=== PATIENT | female | born 1970 | race American Indian/Alaskan Native ===

== ENCOUNTER 2022-02-18 01:55 | Emergency (ER) | payer MEDICAID ==
--- NOTE | 2022-02-18 08:11 | Emergency Department Report ---
ED Female HPI - General Chief complaint: Urogenital-Female Stated complaint: CONDOM STUCK Time Seen by Provider: 02/18/22 07:09 Source: patient Mode of arrival: Ambulatory Limitations: No Limitations - History of Present Illness Initial comments: 51-year-old black female presents to the emergency department for evaluation of possible condom in vagina. She states that she had sex a few days ago and has been unable to get condom out of her vagina despite several attempts. She states that she is now starting to have some intermittent abdominal pain but denies fever. MD Complaint: pelvic pain, other (Foreign body in vagina) -: Sudden, days(s) (2) Severity scale (0 -10): 3 Quality: aching Consistency: intermittent Are you Now?: No Associated Symptoms: abdominal pain. denies: vaginal discharge, vaginal bleeding, nausea/vomiting, fever/chills, headaches, loss of appetite, dysuria, hematuria, rash, seizure, shortness of breath, syncope, weakness - Related Data Sexually active: Yes Previous Rx's Medication Instructions Recorded Last Taken Type Acetaminophen/Codeine [Tylenol #3] 1 tab PO Q6H PRN #20 tablet 12/20/15 Unknown Rx Clindamycin [Clindamycin CAP] 300 mg PO Q8H #21 cap 02/18/22 Unknown Rx Allergies Allergy/AdvReac Type Severity Reaction Status Date / Time Penicillins Allergy Itching Verified 12/20/15 02:20 ED Review of Systems ROS: Stated complaint: CONDOM STUCK Other details as noted in HPI Comment: All other systems reviewed and negative Constitutional: denies: chills, fever Respiratory: denies: shortness of breath Cardiovascular: denies: chest pain, palpitations Gastrointestinal: abdominal pain. denies: nausea, vomiting, diarrhea, hematemesis, melena, hematochezia Genitourinary: denies: urgency, dysuria Musculoskeletal: denies: back pain Skin: denies: rash, lesions Neurological: denies: headache, weakness ED Past Medical Hx - Past Medical History Additional medical history: anemic - Surgical History Hx Cholecystectomy: Yes Hx Appendectomy: Yes - Social History Smoking Status: Never Smoker Substance Use Type: None - Medications Home Medications: Home Medications Medication Instructions Recorded Confirmed Last Taken Type Acetaminophen/Codeine [Tylenol #3] 1 tab PO Q6H PRN #20 tablet 12/20/15 Unknown Rx Clindamycin [Clindamycin CAP] 300 mg PO Q8H #21 cap 02/18/22 Unknown Rx ED Physical Exam - General Limitations: No Limitations General appearance: alert, in no apparent distress - Head Head exam: Present: atraumatic, normocephalic - Eye Eye exam: Present: normal appearance. Absent: conjunctival injection - Neck Neck exam: Present: normal inspection - Respiratory Respiratory exam: Absent: respiratory distress - Cardiovascular Cardiovascular Exam: Present: regular rate - GI/Abdominal GI/Abdominal exam: Present: soft, normal bowel sounds. Absent: distended, te nderness, guarding, rebound - External exam: Present: normal external exam Speculum exam: Present: foreign body. Absent: vaginal discharge - Extremities Exam Extremities exam: Present: normal inspection - Back Exam Back exam: Present: normal inspection. Absent: CVA tenderness (R), CVA tenderness (L) - Neurological Exam Neurological exam: Present: alert, oriented X3, normal gait - Psychiatric Psychiatric exam: Present: normal affect, normal mood - Skin Skin exam: Present: warm, dry, intact, normal color ED Course Vital Signs 02/18/22 02/18/22 02:51 08:21 Temperature 98.4 F 98.7 F Pulse Rate 77 74 Respiratory 18 14 Rate Blood Pressure 135/82 112/80 [Right] O2 Sat by Pulse 100 100 Oximetry - Procedure Description Procedures done: Foreign body removal removal from vagina: Patient with placed in supine position and vaginal speculum inserted, and pandemic was noted inside of vagina. Condom removed with ring forceps. Patient tolerated well. ED Medical Decision Making - Medical Decision Making 51-year-old black female presents to the emergency department for evaluation of possible condom in vagina. She states that she had sex a few days ago and has been unable to get condom out of her vagina despite several attempts. She states that she is now starting to have some intermittent abdominal pain but denies fever. Foreign body removal per my procedure note. Patient placed on 7 days of clindamycin empirically because she started to have abdominal pain. She is advised to follow-up with [facility] for further evaluation or any worsening symptoms. She is advised to return to the emergency department as needed. She verbalizes understanding of and agreement with plan of care. Critical care attestation.: If time is entered above; I have spent that time in minutes in the direct care of this critically ill patient, excluding procedure time. ED Disposition Clinical Impression: Foreign body in vagina Qualifiers: Encounter type: initial encounter Qualified Code(s): T19.2XXA - Foreign body in vulva and vagina, initial encounter Disposition: HOME / SELF CARE / HOMELESS Is pt being admited?: No Does the pt Need Aspirin: No Condition: Stable Instructions: Vaginal Foreign Body, [id number] Additional Instructions: Occasions as prescribed. Follow-up with [facility] for further evaluation and management. Return to the emergency department as needed. Prescriptions: Clindamycin [Clindamycin CAP] 300 mg PO Q8H #21 cap Referrals: LAURIE KEEN MD [Staff Physician] - 3-5 Days Time of Disposition: 08:10
[2022-02-18 08:22] VITALS: BP 112/80
== END 2022-02-18 08:21 | disposition home or self-care (01) ==
LOC: ED 01:55
DX: T19.2XXA Foreign body in vulva and vagina, initial encounter (principal); Z90.49 Acquired absence of other specified parts of digestive tract; Z88.0 Allergy status to penicillin; X58.XXXA Exposure to other specified factors, initial encounter; Y93.89 Activity, other specified; Y92.89 Other specified places as the place of occurrence of the external cause; Y99.8 Other external cause status
CPT/HCPCS: 99282; 99283